=== PATIENT | female | born 1960 | race Caucasian/White ===

== ENCOUNTER → 2018-06-22 | Outpatient (CLI) | payer MEDICARE ==
[~2018-06-22] MED LIST: AMBIEN10 MG PO; GABAPENTIN300 MG PO; LEVOTHYROXINE75 MCG PO; LORAZEPAM INJ 2 MG/ML VIAL ONE; LOSARTAN POTASS50 MG PO; METOPROLOL TART50 MG PO; NEXIUM40 MG PO; PAROXETINE HCL30 MG PO; ZOFRAN4 MG PO
== END ==
LOC: MRI 14:45
PROVIDERS: ATTEND Anesthesiology Pain Medicine
DX: G89.29 Other chronic pain (principal); M54.2 Cervicalgia; M54.5 Low back pain
CPT/HCPCS: J2060